=== PATIENT | female | born 1945 ===

== ENCOUNTER 2020-10-07 18:50 | Inpatient (IN) | payer OTHER ==
[~2020-10-07] VITALS: Ht 5.1 cm; Wt 5.0 kg
[2020-10-07] MEDS ORDERED: INDAPAMIDE2.5 MG PO (19:13)
[2020-10-07] MEDS ORDERED: JANUVIA50 MG PO (19:13)
[2020-10-07] MEDS ORDERED: JANUMET 50-1,01 EACH PO (19:13)
[2020-10-07] MEDS ORDERED: GLIPIZIDE XL5 MG (19:14)
[2020-10-07] MEDS ORDERED: ACID REDUCER20 M1 (19:14)
[2020-10-07] MEDS ORDERED: CHILDREN'S ASPI81 MG (19:14)
[2020-10-07] MEDS ORDERED: ATORVASTATIN CA20 MG (19:15)
[2020-10-07] MEDS ORDERED: CANDESARTAN CILE8 M1 (19:15)
== END 2020-10-12 18:57 | disposition home or self-care (01) | DRG 292 ==
LOC: ER 18:50 → MEDJ 10-08 10:19 → SEC-K 10-08 10:19 → MEDJ 10-08 11:03
PROVIDERS: ADMIT Internal Medicine; ATTEND Internal Medicine
PROC: B24BZZZ Ultrasonography of Heart with Aorta (ICD-10-PCS; principal; 2020-10-08)
PROC: B44GZZZ Ultrasonography of Left Lower Extremity Arteries (ICD-10-PCS; 2020-10-08)
PROC: BW24YZZ Computerized Tomography (CT Scan) of Chest and Abdomen using Other Contrast (ICD-10-PCS; 2020-10-10)
DX: I50.31 Acute diastolic (congestive) heart failure (principal); I82.412 Acute embolism and thrombosis of left femoral vein; I82.492 Acute embolism and thrombosis of other specified deep vein of left lower extremity; J91.8 Pleural effusion in other conditions classified elsewhere; I27.20 Pulmonary hypertension, unspecified; E11.9 Type 2 diabetes mellitus without complications; Z20.822 Contact with and (suspected) exposure to COVID-19; Z79.4 Long term (current) use of insulin